=== PATIENT | male | born 2000 | race Two or more races ===

== ENCOUNTER 2019-04-30 12:15 | Emergency (ER) | payer MEDICAID ==
[~2019-04-30] VITALS: Ht 170.2 cm; Wt 103.0 kg
--- NOTE | 2019-04-30 12:15 | NUR ---
PT EVON FROM WORK FOR N/V, PT AAOX4, -SOB, NAD NOTED, VSS, PENDING MD SEPULVEDA
[2019-04-30] MEDS ORDERED: METOCLOPRAMIDE HCL 10 MG/2 ML VIAL ONE (12:43)
[2019-04-30 12:45] LABS: BASOPHILS % (AUTO) 0.3 % (0.0-2.0); EOSINOPHILS % (AUTO) 0.3 % (0.0-6.0); HEMATOCRIT 47 % (39-51); HEMOGLOBIN 15.7 g/dL (13.5-17.5); LYMPHOCYTES # (AUTO) 1.7 /CMM (0.8-4.8); LYMPHOCYTES % (AUTO) 15.8 % (20.0-44.0); MEAN CORPUSCULAR HGB CONC 33 g/dl (31.0-36.0); MEAN CORPUSCULAR VOLUME 87 fL (80-96); MONOCYTES # (AUTO) 0.9 /CMM (0.1-1.30); MONOCYTES % (AUTO) 8.3 % (2.0-12.0); NEUTROPHILS # (AUTO) 8.2 /CMM (1.8-8.9); NEUTROPHILS % (AUTO) 75.3 % (43.0-81.0); PLATELET COUNT (AUTO) 330 /CMM (150-450); RED BLOOD CELL COUNT(AUTO) 5.42 MIL/uL (4.5-6.0); WHITE BLOOD COUNT (AUTO) 10.9 K/uL (4.3-11.0)
[2019-04-30] MEDS: METOCLOPRAMIDE HCL 10 MG/2 ML VIAL IV ONE (12:52)
[2019-04-30] MEDS: IV NS 0.9% 1,000 ML BAG IV ONE (12:52)
[2019-04-30 12:59] LABS: CALCIUM, SERUM 8.7 mg/dL (8.5-10.1); POTASSIUM 3.9 mmol/L (3.5-5.1)
[2019-04-30 13:05] LABS: ALBUMIN 3.7 g/dL (3.4-5.0); BILIRUBIN,DIRECT 0.1 mg/dL (0.0-0.2); BILIRUBIN,TOTAL 0.4 mg/dL (0.2-1.0); TOTAL PROTEIN, SERUM 7.7 g/dL (6.4-8.2)
--- NOTE | 2019-04-30 13:54 | NUR ---
Patient discharged to home in stable condition. Written and verbal after care instructions given. Patient verbalizes understanding of instruction. IV removed. Catheter intact and site benign. Pressure and 4x4 applied to site. No bleeding noted.
[2019-04-30 13:55] VITALS: BP 139/80
== END 2019-04-30 13:58 | disposition home or self-care (01) ==
LOC: ER 12:15
DX: R11.2 Nausea with vomiting, unspecified (principal); R42 Dizziness and giddiness; F17.200 Nicotine dependence, unspecified, uncomplicated
CPT/HCPCS: 36415; 80048; 80076; 83690; 85025; 96361; 96374; 99283; J2765; J7030